=== PATIENT | female | born 1930 | race Caucasian/White ===

== ENCOUNTER 2016-08-30 17:02 | Emergency (ER) | payer MEDICARE, OTHER ==
[~2016-08-30 17:02] MED LIST: ASA CHILDREN'S81 MG PO; B-12 INJ1000 MCG/M IM; CLONAZEPAM0.5 MG PO; DULCOLAX-DPS10 MG PR; INDERAL-DPS10 MG PO; MAALOX DPS30 ML PO; MACROBID100 MG PO; MEGACE DPS40 MG PO; MILK OF MAGNESI10 ML PO; MIRALAX PACKET17 GM PO; PERCOCET 5 DPS1 TAB PO; PLAVIX75 MG PO; PROTONIX40 MG PO; REQUIP0.25 MG PO; SEROQUEL25 MG PO; SURFAK DPS240 MG PO; SYNTHROID100 MCG PO; TUMS DPS500 MG PO; TYLENOL DPS325 MG PO; VITAMIN D-32000 UNI1 PO
--- NOTE | 2016-09-26 21:25 | ER ---
ADMIT: 08/30/2016 RM/LOC: [facility] MR#: [id number] [address] [place] [address] [place] [address] Emergency Room Report SEX: F AGE: 85 : 1930 DATE: 08/30/2016 HISTORY OF PRESENT ILLNESS: Shikha is an 85-year-old female, presents to the emergency room. She is from an independent facility, presents to the emergency room complaining of blurred vision and dizziness. She has restless legs syndrome and she is having more tremors. She said that she gets dizzy when she gets up at night and get lightheaded. REVIEW OF SYSTEMS: Negative. PAST MEDICAL HISTORY: Hypertension, GERD, hyperlipidemia, Parkinson's, hypothyroidism, chronic back pain, back surgeries, knee surgery. MEDICATION: 1. Famotidine. 2. Levothyroxine. 3. Quetiapine. 4. Klonopin. 5. Propranolol. 6. Ropinirole. 7. Lasix. 8. KCl. ALLERGIES: ALLERGIC TO SULFA, PENICILLIN, ZOLOFT, AND CODEINE. PHYSICAL EXAMINATION: VITAL SIGNS: Blood pressure 155/73 with heart rate of 57, respirations 18, temp is 98.1, O2 sats 99%. GENERAL: Shikha is a little anxious but she is alert. HEENT: Normal inspection. NECK: Supple. RESPIRATIONS: No distress. ADMIT: 08/30/2016 RM/LOC: [facility] MR#: [id number] [address] [place] [id number] SHIKHA W[place]DEN [place] [id number] Emergency Room Report SEX: F AGE: 85 : 1930 CVS: Regular in rate and rhythm. NEURO: Normal orientation. EXTREMITIES: Left leg has 1+ edema. LABORATORY DATA: CBC; white count is 6.8 with hemoglobin of 12.1. Chemistry; normal. BNP is 310. She is from [facility]. She states that she has had issue with her eyes before, was checked by Dr. Palmer and found out that everything was okay about a couple of weeks ago. All the examinations are normal. I did contact Dr. Mcdaniel to let him know that we had his patient in the ER. CLINICAL IMPRESSION: Dizziness. The patient was released with instructions to follow up with Dr. Mcdaniel, calling in the morning. ROBER Sanders / Butch Wheatley MD / verol JOB #: [id number] CC: Gonzalo Augustine MD, Attending Physician
== END 2016-08-30 19:50 | disposition home or self-care (01) ==
LOC: ER 17:02
DX: R42 Dizziness and giddiness (principal); I10 Essential (primary) hypertension; K21.9 Gastro-esophageal reflux disease without esophagitis; E78.5 Hyperlipidemia, unspecified; G20 Parkinson's disease; E03.9 Hypothyroidism, unspecified; Z98.890 Other specified postprocedural states; Z79.899 Other long term (current) drug therapy; Z88.2 Allergy status to sulfonamides; Z88.0 Allergy status to penicillin; Z88.5 Allergy status to narcotic agent; Z88.8 Allergy status to other drugs, medicaments and biological substances